=== PATIENT | male | born 1945 | race Caucasian/White ===

== ENCOUNTER 2018-09-15 10:55 | Day surgery (SDC) | payer OTHER ==
[2018-09-15] MEDS ORDERED: PHENYLEPHRINE 2.5% OPTH 2 ML ONE (11:13)
[2018-09-15] MEDS ORDERED: CYCLOPENTOLATE 1% OPTH 2 ML OPTH ONE ×3 (11:13→11:36)
[2018-09-15] MEDS ORDERED: PHENYLEPHRINE 10% OPTH 5ML ONE (11:14)
[2018-09-15] MEDS ORDERED: NA CHLORIDE 0.9% 500 ML ONE (11:14)
[2018-09-15] MEDS ORDERED: PHENYLEPHRINE 10% OPTH 5ML OPTH ONE ×2 (11:20→11:36)
[2018-09-15] MEDS ORDERED: BALANCED SALT IRRIG PLAIN 500 ML BTL IRR ONE (11:37)
[2018-09-15] MEDS ORDERED: NS 0.9% VIAL 10 ML ONE (11:37)
[2018-09-15] MEDS ORDERED: EPINEPHRINE/PF 1 MG/ML AMP ONE (11:37)
[2018-09-15] MEDS ORDERED: DUOVISC 1 KIT OPTH ONE (11:37)
[2018-09-15] MEDS ORDERED: MOXIFLOXACIN HCL 10 DROPS/ML **OR USE OPTH ONE (11:38)
[2018-09-15] MEDS ORDERED: PROPOFOL 200 MG/20 ML VIAL IV ONE (11:47)
[2018-09-15] MEDS: LIDOCAINE 1% MPF 5 ML VIAL ONE ×2 (11:49→12:15)
--- NOTE | 2018-09-15 13:01 | P.BOP ---
Preoperative diagnosis: Nuclear sclerotic cataract and regular astigmatism OS Postoperative diagnosis: Same Primary procedure: Phacoemulsification with IOL OS, Limbal relaxing incision OS Estimated blood loss: None Anesthesia: Local (Subtenon's infusion with anesthesia for cataract surgery) Complications: None Implants: [id number] +22.0 Transferred to: Other (Day surgery) Condition: Good
--- NOTE | 2018-09-15 23:39 | OP ---
Date of Procedure: 09/15/2018 Surgeon: Arleen Pickett MD Anesthesiologist: Liz Maxwell CRNA and Carlos Chang M.D. Preoperative Diagnosis: Nuclear sclerotic cataract and regular astigmatism, left eye. Operation Performed: Phacoemulsification with intraocular lens implant, left eye. Anesthesia: Per Cataract Surgery. Complications: None. Description Of Procedure: In day surgery, the patient was prepped with Betadine and draped. A conju nctival incision was made in the inferior nasal quadrant with Swathi scissors. A sub-Tenon block c onsisting of a 1:1 mixture of 2% Xylocaine and 0.25% bupivacaine was placed through the conjunctival incision with a blunt cannula. A Honan balloon was placed over the eye and the patient was transferr ed to the operating room. In the operating room the patient was prepped and draped in the usual sterile fashion for ophthalmic surgery. A lid speculum was placed in the left eye. Two paracentesis sites were made superiorly and inferiorly in the limbal cornea. Viscoat was placed in the anterior chamber and a crescent blade wa s used to make a corneal groove and tunnel, and a keratome was used to enter the anterior chamber. P rovisc was placed in the anterior chamber and a 360 degree capsulotomy was performed with a cystitome . The lens was hydrodissected with BSS and rotated freely. The lens was removed with a stop and cho p technique. A 20.34 phaco CDE was used to remove the lens. Residual cortex was removed with the ir rigation and aspiration. Provisc was placed in the capsular bag. A ZCB00 +22.0 lens was placed in t he capsular bag without complications. Irrigation and aspiration was used to remove residual viscoel astic. The paracentesis sites were hydrated with BSS. The wound and paracentesis sites were inspect ed and found to be watertight. Vigamox 0.07 cc was placed intracamerally at the end of the procedure . The eye was irrigated with balanced salt solution. The eye was patched with a soft cotton patch a nd Hodges metal shield. The patient was returned to day surgery in good condition. Comments: A limbal relaxing incision was created at a 150 degrees in the temporal quadrant, a 40-deg ree arc was created with a 550 micron blade. Discharge Instructions: Mr. Jackson is discharged to home in good condition and is to follow up with Dr. Pickett. INDY/ZACHARY Voice ID: [id number] Report ID: [id number]
== END 2018-09-15 13:30 | disposition home or self-care (01) ==
LOC: OR 10:55
PROVIDERS: ATTEND Ophthalmology Retina Specialist
PROC: 08RK3JZ Replacement of Left Lens with Synthetic Substitute, Percutaneous Approach (ICD-10-PCS; principal; 2018-09-15 11:15)
DX: H25.12 Age-related nuclear cataract, left eye (principal); H52.222 Regular astigmatism, left eye; K21.9 Gastro-esophageal reflux disease without esophagitis; E78.00 Pure hypercholesterolemia, unspecified; Z86.73 Personal history of transient ischemic attack (TIA), and cerebral infarction without residual deficits
CPT/HCPCS: 66984; J0171; J2704

== ENCOUNTER 2018-10-27 06:53 | Day surgery (SDC) | payer OTHER ==
[2018-10-27] MEDS ORDERED: CYCLOPENTOLATE 1% OPTH 2 ML ONE (07:20)
[2018-10-27] MEDS ORDERED: LIDOCAINE 2% MPF 5 ML VIAL ONE ×2 (07:20→08:13)
[2018-10-27] MEDS ORDERED: LIDOCAINE 1% MPF 30 ML VIAL ONE (07:21)
[2018-10-27] MEDS ORDERED: PHENYLEPHRINE 10% OPTH 5ML ONE (07:21)
[2018-10-27] MEDS ORDERED: TETRACAINE HCL 0.5% 2ML OPTH ONE (07:21)
[2018-10-27] MEDS ORDERED: NACHLORIDE 0.45% 500 ML IV ONE (07:22)
[2018-10-27] MEDS ORDERED: PHENYLEPHRINE 10% OPTH 5ML OPTH ONE ×2 (07:30→07:35)
[2018-10-27] MEDS ORDERED: CYCLOPENTOLATE 1% OPTH 2 ML OPTH ONE ×2 (07:30→07:35)
[2018-10-27] MEDS ORDERED: NS 0.9% VIAL 10 ML ONE (08:06)
[2018-10-27] MEDS ORDERED: EPINEPHRINE/PF 1 MG/ML AMP ONE (08:07)
[2018-10-27] MEDS ORDERED: BUPIVACAINE 0.25% PF 30 ML VIAL ONE (08:08)
[2018-10-27] MEDS ORDERED: BALANCED SALT IRRIG PLAIN 500 ML BTL IRR ONE (08:08)
[2018-10-27] MEDS ORDERED: DUOVISC 1 KIT OPTH ONE (08:09)
[2018-10-27] MEDS ORDERED: MOXIFLOXACIN HCL 10 DROPS/ML **OR USE OPTH ONE (08:10)
[2018-10-27] MEDS ORDERED: PROPOFOL 200 MG/20 ML VIAL IV ONE (08:13)
[2018-10-27] MEDS ORDERED: NA CHLORIDE 0.9% 500 ML ONE (08:30)
--- NOTE | 2018-10-27 09:10 | P.BOP ---
Preoperative diagnosis: Nuclear sclerotic cataract and regular astigmatism OD Postoperative diagnosis: Same Primary procedure: Phacoemulsification with IOL OD with limbal relaxing incision Estimated blood loss: None Anesthesia: Local (Subtenon's infusion with anesthesia for cataract surgery) Complications: None Implants: ZCB00 +21.5 Transferred to: Other (Day surgery) Condition: Good
--- NOTE | 2018-10-27 20:45 | OP ---
Date of Procedure: 10/27/2018 Surgeon: Arleen Pickett MD Anesthesiologist: Maulik Euceda CRNA and Gigi Yin MD Preoperative Diagnosis: Nuclear sclerotic cataract and regular astigmatism, right eye. Operation Performed: Phacoemulsification with intraocular lens implant, right eye with limbal relaxing incision, right eye. Anesthesia: Per cataract surgery. Complications: None. Description Of Procedure: In day surgery, the patient was prepped with Betadine and draped. A conjunctival incision was made in the inferior nasal quadrant with Swathi scissors. A sub-Tenon block consisting of a 1:1 mixture of 2% Xylocaine and 0.25% bupivacaine was placed through the conjunctival incision with a blunt cannula. A Honan balloon was placed over the eye and the patient was transferred to the operating room. In the operating room the patient was prepped and draped in the usual sterile fashion for ophthalmic surgery. A lid speculum was placed in the right eye. Two paracentesis sites were made superiorly and inferiorly in the limbal cornea. Viscoat was placed in the anterior chamber and a crescent blade was used to make a corneal groove and tunnel, and a keratome was used to enter the anterior chamber. Provisc was placed in the anterior chamber and a 360 degree capsulotomy was performed with a cystitome. The lens was hydrodissected with BSS and rotated freely. The lens was removed with a stop and chop technique. 30.05 phaco CDE was used to remove the lens. Residual cortex was removed with the irrigation and aspiration. Provisc was placed in the capsular bag. A ZCB00 +21.5 lens was placed in the capsular bag without complications. Irrigation and aspiration were used to remove residual viscoelastic. The paracentesis sites were hydrated with BSS. The wound and paracentesis sites were inspected and found to be watertight. Vigamox 0.07 cc was placed intracamerally at the end of the procedure. The eye was irrigated with balanced salt solution. The eye was patched with a soft cotton patch and Hodges metal shield. The patient was returned to day surgery in good condition. Comments: A limbal relaxing incision was created at 6 degrees nasally. A 40 degree arc was created with the 550 micron blade. Extra Viscoat was used. Discharge Instructions: Mr. Jackson is discharged to home in good condition and is to follow up with Dr. Pickett in the morning. INDY/ZACHARY Voice ID: [id number] Report ID: [id number] ANNE
== END 2018-10-27 09:40 | disposition home or self-care (01) ==
LOC: PRE 06:53
PROVIDERS: ATTEND Ophthalmology Retina Specialist
PROC: 08Q8XZZ Repair Right Cornea, External Approach (ICD-10-PCS; 2018-10-27)
PROC: 08RJ3JZ Replacement of Right Lens with Synthetic Substitute, Percutaneous Approach (ICD-10-PCS; principal; 2018-10-27 08:30)
DX: H25.11 Age-related nuclear cataract, right eye (principal); H52.221 Regular astigmatism, right eye; K21.9 Gastro-esophageal reflux disease without esophagitis; E78.00 Pure hypercholesterolemia, unspecified; Z86.73 Personal history of transient ischemic attack (TIA), and cerebral infarction without residual deficits
CPT/HCPCS: 66984; 66999; J0171; J2704

== ENCOUNTER 2022-08-04 23:11 | Emergency (ER) | payer OTHER ==
--- OUTSIDE RECORDS SUMMARY | 2022-08-04 23:15 | XMS REPORT | Continuity of Care Document ---
:1945 Author Organization [facility] t Address [address] [place] [address] Dr. Harrington. [address] [place] [address] Care Team Providers Name Role Phone Krys Herman MD, Calvin Primary Care Physician Jairo Attending Clinician Unavailable Rosalio Solis Attending Clinician [phone] CHUCK ARRIAGA Attending Clinician Unavailable ASHLYN ENCINAS Attending Clinician Unavailable KEVON ROSE Attending Clinician Unavailable Chuck Arriaga MD Attending Clinician Tika Patrick MD Attending Clinician Jairo Admitting Clinician Unavailable Payers Payer Name Policy Type Policy Number Effective Date Expiration Date S [facility] [id number] 2021 (MEDICARE 00:00:00 REPLACEMENT/ADVANTA GE - PPO) [facility]-CARE MEDICARE [id number] [facility] ZZZTRS-CARE [id number] MEDICARE ADVANTAGE MEDICARE PLAN PPO - [id number] [employer] MEDICARE PART B - [id number] MEDICARE Problems Condition Condition Condition Status Onset Resolution Last Treating Co mments Source Name Details Category Date Date Treatment Clinician Date BCC (basal BCC (basal 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 Social History Social Habit Start Date Stop Date Quantity Comments Source Exposure to Not sure [facility] Jed huber SARS-CoV-2 of Medicine (event) Alcohol intake 2022-01-17 2022-01-17 Current drinker [facility] 00:00:00 00:00:00 of alcohol of Medicine (finding) Tobacco use and 2013-06-26 2013-06-26 Smokeless tobacco [facility] exposure 00:00:00 00:00:00 non-user of Medicine Sex [birth year] [facility] [employer] 00:00:00 00:00:00 of Medicine Smoking Status Start Date Stop Date Source Never smoked tobacco [facility] of [facility] Medications Ordered Filled Start Stop Current Ordering Indication Dosage Frequency Signature Comments Components Source Medication Medication Date Date Medication? Clinician (SIG) Name Name Multiple 2020-11 Yes Take by [facility] Vitamins-Mi 2-13 mouth. Colleg e nerals 17:24: of (SENT 48 Medicin ADULT) TABS e Cyanocobala 2020-11 Yes Take by [place] [facility] min 2-13 mouth. 4x College (VITAMIN 17:24: week of B-12) 5000 48 Medicin MCG TBDP e Coenzyme 2020-11 Yes Take by [facility] Q10 (COQ10) 2-13 mouth [facility]less 100 MG CAPS 17:24: daily. of 48 Medicin e Glucosamine 2020-11 Yes Take by [place] [facility] 750 MG TABS 2-13 mouth College 17:24: daily. of 48 Medicin e Multiple 2020-11 Yes Take by [facility] Vitamins-Mi 2-13 mouth. Colleg e nerals 17:24: of (SENTRY 48 Medicin ADULT) TABS e Cyanocobala 2020-11 Yes Take by [place] [facility] min 2-13 mouth. 4x College (VITAMIN 17:24: week of B-12) 5000 48 Medicin MCG TBDP e Coenzyme 2020-11 Yes Take by [facility] Q10 (COQ10) 2-13 mouth [facility]less 100 MG CAPS 17:24: daily. of 48 Medicin e Glucosamine 2020-11 Yes Take by [facility] 750 MG TABS 2-13 mouth [facility] 17:24: daily. of 48 Medicin e Multiple 2020-11 Yes Take by [facility] Vitamins-Mi 2-13 mouth. Colleg e nerals 17:22: of (VITEYES 01 Medicin AREDS e ADVANCED OR) tadalafil 2020-11 Yes 20mg Take 20 mg Ba ylor (CIALIS) 20 2-13 by mouth [facility] MG tablet 17:22: as needed of 01 for Medicin Erectile e Dysfunctio n. Multiple 2020-11 Yes Take by [facility] Vitamins-Mi 2-13 mouth. Colleg e nerals 17:22: of (VITEYES 01 Medicin AREDS e ADVANCED OR) tadalafil 2020-11 Yes 20mg Take 20 mg [facility] (CIALIS) 20 2-13 by mouth [facility] MG tablet 17:22: as needed of 01 for Medicin Erectile e Dysfunctio n. Cyanocobala 2020-11- No 1000ug Take 1,000 Jl min 2-13 12-13 mcg by [facility] (VITAMIN 15:50: 00:00 mouth. of B-12) 1000 49 :00 Medicin MCG TABS e Cholecalcif 2020-11- No 1000U Take 1,000 Jl dhara 2-13 12-13 Units by [facility] (VITAMIN 15:50: 00:00 mouth. of D-1000 MAX 46 :[address]) 25 MCG e (1000 UT) TABS atorvastati 2020-11 Yes [facility] n (LIPITOR) 2-08 [facility]less 20 MG 00:00: of tablet 00 Medicin e clopidogrel 2020-11 Yes [facility] (PLAVIX) 75 2-08 [facility] MG Tablet 00:00: of 00 Medicin e atorvastati 2020-11 Yes [facility] n (LIPITOR) 2-08 [facility] 20 MG 00:00: of tablet 00 Medicin e clopidogrel 2020-11 Yes [facility] (PLAVIX) 75 2-08 [facility] MG Tablet 00:00: of 00 Medicin e Cyanocobala 0 Yes 1000ug Take 1,000 [facility] min 3-11 mcg by College (VITAMIN 14:42: mouth. of B-12) 1000 44 Medicin MCG TABS e Cholecalcif 2020-0 Yes 1000U Take 1,000 [facility] dhara 3-11 Units by College (VITAMIN 14:42: mouth. of D-[address]) 25 MCG e (1000 UT) TABS Multiple 2020-0 Yes Take by [facility] Vitamins-Mi 3-11 mouth. Colleg e nerals 14:42: of (VITEYES 44 Medicin AREDS e ADVANCED OR) Cyanocobala 2020-0 Yes 1000ug Take 1,000 Jl min 3-11 mcg by College (VITAMIN 09:42: mouth. of B-12) 1000 44 Medicin MCG TABS e Cholecalcif 2020-0 Yes 1000U Take 1,000 Jl dhaar 3-11 Units by [facility] (VITAMIN 09:42: mouth. of D-[address]) 25 MCG e (1000 UT) TABS Multiple 2020-0 Yes Take by [facility] Vitamins-Mi 3-11 mouth. Colleg e nerals 09:42: of (VITEYES 44 Medicin AREDS e ADVANCED OR) rosuvastati 2020-0 Yes [facility] n (CRESTOR) 3- [facility] 10 MG 00:00: of tablet 00 Medicin e rosuvastati 2020-0 Yes [facility] n (CRESTOR) 3 [facility]less 10 MG 00:00: of tablet 00 Medicin e rosuvastati 2020-0 2020- No [facility] r n (CRESTOR) 01-17- [facility] 10 MG 00:00: 00:00 of tablet 00 :00 Medicin e ezetimibe 2020-0 Yes Jl (ZETIA) 10 - College MG tablet 00:00: of 00 Medicin e ezetimibe 2020-0 Yes Jl (ZETIA) 10 - College MG tablet 00:00: of 00 Medicin e ezetimibe 2020-0 2020- No Jl (ZETIA) 10 11-14 College MG tablet 00:00: 00:00 of 00 :00 Medicin e ranitidine, Yes TAKE 1 [facility] ZANTAC, 150 7-31 TABLET BY Col lege MG tablet 00:00: MOUTH of 00 TWICE A Medicin DAY e ranitidine, Yes TAKE 1 [facility] ZANTAC, 150 7-31 TABLET BY Col lege MG tablet 00:00: MOUTH of 00 TWICE A Medicin DAY e ranitidine, 2020- No TAKE 1 [place] [facility] ZANTAC, 150 7-31 12-13 TABLET BY Co llege MG tablet 00:00: 00:00 MOUTH of 00 :00 TWICE A Medicin DAY e Immunizations Ordered Immunization Filled Immunization Date Status Commen ts Source Name Name Influenza Hd 2021-08-11 Completed [facility] ge 00:00:00 of Medicine Vital Signs Vital Name Observation Time Observation Value Comments Source Systolic blood 2020-01-20 14:41:00 138 mm[Hg] [facility] pressure Medicine Diastolic blood 2020-01-20 14:41:00 86 mm[Hg] [facility] Medicine Heart rate 2020-01-20 14:41:00 70 /min [facility] of Medicine Body height 2020-01-20 14:41:00 180.3 cm [facility] of Medicine Body weight 2020-01-20 14:41:00 80.287 kg [facility] of Medicine BMI 2020-01-20 14:41:00 24.69 kg/m2 [facility] of Medicine Systolic blood 2020-01-20 14:41:00 138 mm[Hg] [facility] Medicine Diastolic blood 2020-01-20 14:41:00 86 mm[Hg] [facility] Medicine Heart rate 2020-01-20 14:41:00 70 /min [facility] of Medicine Body height 2020-01-20 14:41:00 180.3 cm [facility] of Medicine Body weight 2020-01-20 14:41:00 80.287 kg [facility] of Medicine BMI 2020-01-20 14:41:00 24.69 kg/m2 [facility] of Medicine Procedures This patient has no known procedures. Plan of Care Planned Activity Planned Date Details Comments Source Future Scheduled 2022-01-17 TETANUS SHOT (ADULT) [facility] Test 16:12:39 [code = TETANUS SHOT of Medi cine (ADULT)] Future Scheduled 2022-01-17 Hepatitis C [facility] Test 16:12:39 screening of Medicine (procedure) [code = 078261359] Future Scheduled 2022-01-17 ZOSTER VACCINE (1 of [place] [employer] Test 16:12:39 2) [code = ZOSTER of Medicin e VACCINE (1 of 2)] Future Scheduled 2022-01-17 FALL SCREEN [code = [facility] [employer] Test 16:12:39 FALL SCREEN] of Medicine Future Scheduled 2022-01-17 Pneumococcal 65+ (1 [facility] [facility] [employer] Test 16:12:39 of 1 - PPSV23) [code of Medi cine = Pneumococcal 65+ (1 of 1 - PPSV23)] Future Scheduled 2022-01-17 MEDICARE AWV J[facility] Test 16:12:39 (Initial) [code = of Medicin e MEDICARE AWV (Initial)] Future Scheduled 2022-01-17 Screening for Jl [employer] Test 16:12:39 malignant neoplasm of Medici ne of colon (procedure) [code = 864501439] Future Scheduled 2022-01-17 COVID-19 Vaccine (1) [place] [facility] [employer] Test 16:12:39 [code = COVID-19 of Medicine Vaccine (1)] Future Scheduled 2022-01-17 MD DESTRUC Ordered: [facility] Test 16:12:36 PREMALIGNANT, FIRST 01/17/2022 of Medic ine LESION(65757) [code = 56692] Future Scheduled 2022-01-17 MD DESTRUC Ordered: [facility] Test 16:12:36 PREMALIGNANT,2-14 01/17/2022 of Medicin e LESIONS(29568) [code = 00681] Future Scheduled 2021-10-25 MD TANGENTIAL BIOPSY Ordered: [facility] Test 20:21:01 SKIN EA 10/25/2021 of Medicine SEP/ADDITIONAL LESION [code = 41928] Future Scheduled 2021-10-25 MD DESTRUC Ordered: [facility] Test 20:21:01 PREMALIGNANT, FIRST 10/25/2021 of Medic ine LESION(63848) [code = 22490] Future Scheduled 2021-10-25 MD DESTRUC Ordered: [facility] Test 20:21:01 PREMALIGNANT,2-14 10/25/2021 of Medicin e LESIONS(87468) [code = 71302] Future Scheduled 2021-10-25 MD TANGENTIAL BIOPSY Ordered: [facility] Test 20:21:00 SKIN SINGLE LESION 10/25/2021 of Medici ne [code = 39743] Future Scheduled 2021-10-25 Screening for [facility] Test 20:19:22 malignant neoplasm of Medici ne of colon (procedure) [code = 974708277] Future Scheduled 2021-10-25 COVID-19 Vaccine (1) [place] [facility] [employer] Test 20:19:22 [code = COVID-19 of Medicine Vaccine (1)] Future Scheduled 2021-10-25 TETANUS SHOT (ADULT) [place] [facility] [employer] Test 20:19:22 [code = TETANUS SHOT of Medi cine (ADULT)] Future Scheduled 2021-10-25 Hepatitis C [facility] Test 20:19:22 screening of Medicine (procedure) [code = 496428104] Future Scheduled 2021-10-25 ZOSTER VACCINE (1 of [facility] Test 20:19:22 2) [code = ZOSTER of Medicin e VACCINE (1 of 2)] Future Scheduled 2021-10-25 FALL SCREEN [code = [facility] [facility] [employer] Test 20:19:22 FALL SCREEN] of Medicine Future Scheduled 2021-10-25 Pneumococcal 65+ (1 [facility] [facility] [employer] Test 20:19:22 of 1 - PPSV23) [code of Medi cine = Pneumococcal 65+ (1 of 1 - PPSV23)] Future Scheduled 2021-10-25 MEDICARE AWV [facility] Test 20:19:22 (Initial) [code = of Medicin e MEDICARE AWV (Initial)] Future Scheduled 2021-10-25 FLU VACCINE > 6 [facility] Test 20:19:22 MONTHS [code = FLU of Medici ne VACCINE > 6 MONTHS] Future Scheduled 2021-05-03 MD TANGENTIAL BIOPSY Ordered: [facility] Test 11:21:25 SKIN SINGLE LESION 05/03/2021 of Medici ne [code = 73774] Future Scheduled 2021-05-03 MD DESTRUC Ordered: [facility] Test 11:21:25 PREMALIGNANT,15+ 05/03/2021 of Medicine LESIONS(49048) [code = 25290] Future Scheduled 2021-05-03 Screening for [facility] Test 10:04:40 malignant neoplasm of Medici ne of colon (procedure) [code = 203368131] Future Scheduled 2021-05-03 COVID-19 Vaccine (1) [facility] Test 10:04:40 [code = COVID-19 of Medicine Vaccine (1)] Future Scheduled 2021-05-03 TETANUS SHOT (ADULT) [place] [facility] [employer] Test 10:04:40 [code = TETANUS SHOT of Medi cine (ADULT)] Future Scheduled 2021-05-03 Hepatitis C [facility] Test 10:04:40 screening of Medicine (procedure) [code = 792682838] Future Scheduled 2021-05-03 ZOSTER VACCINE (1 of [facility] Test 10:04:40 2) [code = ZOSTER of Medicin e VACCINE (1 of 2)] Future Scheduled 2021-05-03 FALL SCREEN [code = [facility] [employer] Test 10:04:40 FALL SCREEN] of Medicine Future Scheduled 2021-05-03 PNEUMOVAX >=65 [facility] Test 10:04:40 (PPSV23) [code = of Medicine PNEUMOVAX >=65 (PPSV23)] Future Scheduled 2021-05-03 FLU VACCINE > 6 [facility] Test 10:04:40 MONTHS [code = FLU of Medici ne VACCINE > 6 MONTHS] Future Scheduled MD DESTRUC Ordered: [facility] Test PREMALIGNANT, FIRST 01/20/2020 of Medic ine LESION(35270) [code = 61228] Future Scheduled MD DESTRUC Ordered: [facility] Test PREMALIGNANT,2-14 01/20/2020 of Medicin e LESIONS(51340) [code = 40451] Future Scheduled COLON CANCER [facility] Test SCREENING: of Medicine COLONOSCOPY [code = COLON CANCER SCREENING: COLONOSCOPY] Future Scheduled TETANUS SHOT (ADULT) [facility] Test [code = TETANUS SHOT of Medi cine (ADULT)] Future Scheduled BMI FOLLOW UP PLAN [facility] Test [code = BMI FOLLOW of Medici ne UP PLAN] Future Scheduled HEPATITIS C [facility] Test SCREENING [code = of Medicin e HEPATITIS C SCREENING] Future Scheduled FALL SCREEN [code = [facility] [employer] Test FALL SCREEN] of Medicine Future Scheduled PNEUMOVAX >=65 [facility] Test (PPSV23) [code = of Medicine PNEUMOVAX >=65 (PPSV23)] Future Scheduled PREVNAR >= 65 [facility] Test (PCV13) [code = of Medicine PREVNAR >= 65 (PCV13)] Future Scheduled MEDICARE AWV [facility] Test (Initial) [code = of Medicin e MEDICARE AWV (Initial)] Future Scheduled FLU VACCINE > 6 [facility] Test MONTHS [code = FLU of Medici ne VACCINE > 6 MONTHS] Encounters Start End Encounter Admission Attending Care Care Encounter Source Date/Time Date/Time Type Type Clinicians Facility Department ID 2022-06-04 2022-06-04 Outpatient FOG_Edwards AOSM AOSM [id number] [facility] 01:57:00 01:57:00 _Niurka [id number] Orth [facility] Medicin e 2022-06-04 2022-06-04 Outpatient CASSIE Solis AOSM [id number] 00:00:00 00:00:00 Rosalio Cardenas [id number] 2022-05-11 2022-05-11 Outpatient DAVID_John AOSM AOSM [id number] [facility] 03:28:00 03:28:00 _Niurka [id number] Orth ope dic Sports Medicin e 2022-05-11 2022-05-11 Outpatient CASSIE Solis AOSM [id number] 00:00:00 00:00:00 Rosalio Cardenas [id number] 2022-04-17 2022-04-17 Outpatient DAVID_John AOSM AOSM [id number] [facility] 10:28:00 10:28:00 _Niurka [id number] Orth ope dic Sports Medicin e 2022-01-17 2022-01-17 Office ERIC ARRIAGA [id number] [facility] 08:55:21 09:51:05 Visit CHUCK AMBULATOR [id number] College Y 0.2.7.2.686 of [id number] Medi nima 300 e 2021-12-05 2021-12-05 Outpatient ASHLYN ENCINAS [facility] [id number] [facility] 08:43:28 11:57:40 Colleg e of Medicin e 2021-11-21 2021-11-21 Outpatient MILTON, [facility] [id number] [facility] 00:00:00 00:00:00 KEVON [address] 2021-11-17 2021-11-17 Outpatient MILTON, [facility] [id number] [facility] 00:00:00 00:00:00 KEVON [address] 2021-10-23 2021-10-23 Office Juan Francisco BC [id number] [facility] 15:45:00 16:06:27 Visit Chuck A AMBULATOR 350.1.13.21 College Y 0.2.7.2.686 of [id number] Medi nima 300 e 2021-08-01 2021-08-01 Outpatient HUANGASHLYN [facility] BCM [id number] [facility] 08:38:08 10:29:54 Colleg e of Medicin e 2021-06-28 2021-06-28 Outpatient HUANGASHLYN [facility] [id number] [facility] 11:04:43 12:10:02 Colleg e of Medicin e 2021-05-03 2021-05-03 Office Tika Patrick M [id number] [facility] 09:39:57 09:54:57 Visit Silverio AMBULATOR 350.1.13.21 College Y 0.2.7.2.686 of [id number] Medi nima 300 e 2020-11-22 2020-11-22 Outpatient ROSEFORMERLY [facility] [id number] [place] 00:00:00 00:00:00 KEVON 747 Method i 2020-11-07 2020-11-07 Outpatient ROSEFORMERLY [facility] [id number] [facility] 00:00:00 00:00:00 KEVON 714 Method i 2020-05-17 2020-05-17 Outpatient ROSEFORMERLY [facility] [id number] [place]inger 00:00:00 00:00:00 KEVON 680 Method i 2020-01-20 2020-01-20 Office Tika Patrick BCM [id number] 09:03:55 09:18:55 Visit [facility] AMBULATOR 350.1.13.21 Y 0.2.7.2.686 [id number] 300 2020-01-20 2020-01-20 Office Tika Patrick [facility] [id number] [facility] 09:03:55 09:18:55 Visit [facility] AMBULATOR 350.1.13.21 College Y 0.2.7.2.686 of [id number] [facility] nima 300 e Results This patient has no known results.
[2022-08-05 00:02] LABS: Absolute Lymphocytes (CBC) 3.7 K/uL (0.7-4.9); Hematocrit 46.5 % (39.6-49.0); Lymphocytes % 48.8 % (15.3-44.8); MCV 89.7 fL (80-100); MPV 8.3 fL (7.6-11.3); RBC Red Blood Cell Count 5.18 M/uL (4.33-5.43)
[2022-08-05 00:03] LABS: Protime INR 0.98
[2022-08-05 00:20] LABS: Albumin 3.5 g/dL (3.4-5.0); Bilirubin Direct 0.1 mg/dL (0-0.2); Bilirubin Total 1.2 mg/dL (0.2-1.0); Potassium 3.6 mmol/L (3.5-5.1); Protein, Total 6.8 g/dL (6.4-8.2); Troponin High Sensitivity 8.9 pg/mL (<58.9)
[2022-08-05 00:20] LABS: SARS-CoV-2 Antigen Rapid Res Negative (Negative)
[2022-08-05 00:21] LABS: Magnesium 2.2 mg/dL (1.8-2.4)
[2022-08-05 00:25] LABS: Blood Morphology Comment NOTED (NOT SEEN); Platelet Estimate ADEQ; Teardrop Cell 1+; White Blood Cell Scan OK (OK)
[2022-08-05] MEDS ORDERED: Nicardipine/NS 25 MG/250 ML KIT IV ONE (00:32)
--- NOTE | 2022-08-05 00:44 | ER ---
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 I took a Cialis at 9 PM today. Initial Sepsis Screen: Does the patient meet any 2 criteria? No. Patient's initial sepsis screen is negative. Does the patient have a suspected source of infection? No. Patient's initial sepsis screen is negative. Risk Assessment: Do you want to hurt yourself or someone else? Patient reports no desire to harm self or others. Onset of symptoms was August 04, 2022 at 23:50. 23:48 Method Of Arrival: Wheelchair aa9 23:48 Acuity: MANJIT 2 aa9 08/05 00:04 Coronavirus screen: Vaccine status: Patient reports receiving the 2nd dose of the covid aa9 vaccine. Ebola Screen: No symptoms or risks identified at this time. Historical: - Allergies: 00:07 No Known Allergies; aa9 - Home Meds: 00:07 atorvastatin 20 mg oral tab 1 tab once daily [Active]; famotidine 20 mg Oral tab 1 tab aa9 once daily [Active]; Sentry oral tab daily [Active]; CoQ-10 100 mg oral cap daily [Active]; [place]-3 350 mg-235 mg- 90 mg-597 mg oral cpDR daily [Active]; aspirin 81 mg Oral cap 1 cap once daily [Active]; tadalafil 20 mg oral tab 1 tab for erectile dysfunction [Active]; - PMHx: 00:07 aortic aneurysm; TIA; Hypercholesterolemia; aa9 - PSHx: 00:07 shoulder sx; aa9 - Immunization history:: Client reports receiving the 2nd dose of the Covid vaccine. - Social history:: Smoking status: Patient denies any tobacco usage or history of. Screenin:14 Abuse screen: Denies threats or abuse. Denies injuries from another. Nutritional aa9 screening: No deficits noted. Tuberculosis screening: No symptoms or risk factors identified. Fall Risk None identified. Assessment: 08/04 23:44 General: Appears distressed, uncomfortable, Behavior is agitated, anxious. Pain: aa9 Complains of pain in buttocks Pain does not radiate. Pain began 30 min ago. Neuro: Level of Consciousness is awake, alert, obeys commands, Oriented to person, place, time, situation. Cardiovascular:. Respiratory: Airway is patent Respiratory effort is even, unlabored, Respiratory pattern is regular, symmetrical. Derm: Derm: Skin is dusky, Skin temperature is cool. Derm: Skin is clammy. Musculoskeletal: Reports numbness in right leg. 23:44 Cardiovascular: Pulses are absent in right posterior tibial artery and right dorsalis aa9 pedis artery. 08/05 00:27 General: Behavior is restless. as6 Vital Signs: 08/04 23:15 BP 137 / 50; Pulse 48; Resp 17 S; Pulse Ox 100% on R/A; as6 23:48 BP 132 / 50; Pulse 49; Resp 16 S; Temp 97.5(O); Pulse Ox 98% on R/A; aa9 08/05 00:00 Weight 86.18 kg (R); as6 00:00 BP 127 / 55; Pulse 48; Resp 20 S; Pulse Ox 100% on R/A; aa9 00:28 BP 133 / 46; Pulse 51; Resp 20 S; Pulse Ox 99% on R/A; as6 00:37 BP 128 / 55; Pulse 54; Resp 18 S; Pulse Ox 100% on R/A; as6 00:41 BP 106 / 34; Pulse 56; Resp 19 S; Pulse Ox 100% on R/A; as6 ED Course: 08/04 23:15 Patient arrived in ED. ja2 23:15 Zachary Cabrera, PEMA is Primary Nurse. as6 23:16 Josy hSah MD is Attending Physician. sd2 23:47 Ct Stroke Brain Wo Cont In Process Unspecified. EDMS 23:48 Angio Aorta For Dissection In Process Unspecified. EDMS 23:48 Inserted saline lock: 20 gauge in left antecubital area, using aseptic technique. Blood aa9 collected. 23:50 Triage completed. aa9 23:51 Stroke CXR 1 View In Process Unspecified. EDMS 08/05 00:01 Initiated transfer to [facility] per Pt request, spoke with Cami Noble. wm 00:02 Inserted saline lock: 18 gauge in right forearm, using aseptic technique. aa9 00:12 Arm band placed on. aa9 00:14 Patient maintains SpO2 saturation greater than 95% on room air. aa9 00:14 Patient has correct armband on for positive identification. Bed in low position. Side aa9 rails up X2. Client placed on continuous cardiac and pulse oximetry monitoring. NIBP monitoring applied. 00:27 Pt accepted for transfer to [facility] by Dr. Cintia Hickman per Cami Noble. wm 00:40 No provider procedures requiring assistance completed. aa9 01:10 Patient transferred, IV remains in place. as6 Administered Medications: 00:21 Not Given (Other Intervention Used): Esmolol 50 mcg/kg/min IV at bolus See aa9 Administration Instructions; (Standard concentration 2500 mg / 250 mL D5W); Recommended max rate 200 mcg/kg/min; Titrate 25 mcg/kg/min as often as every 5 minutes to achieve goal (see titration policy); Goal parameter HR less than 100 bpm. 00:32 Drug: niCARdipine 5 mg/hr Route: IV; Rate: calculated rate; Site: left antecubital; aa9 01:10 Follow up: Response: No adverse reaction; IV Status: Infusion continued upon transfer as6 Medication: 00:40 VIS not applicable for this client. aa9 Outcome: 00:44 ER care complete, transfer ordered by . sd2 01:09 Transferred by helicopter to [facility], Transfer form completed. X-rays as6 sent w/ patient. 01:09 critical 01:09 Instructed on the need for transfer. 01:11 Patient left the ED. as6 Signatures: Dispatcher [employer] EDMS Marilia Benton Christlele Ralph Ashby, RN RN as6 Josy Shah MD MD sd2 Melissa Tabor, PEMA RN aa9 Corrections: (The following items were deleted from the chart) 00:04 00:03 Inserted saline lock: 20 gauge in left antecubital area, using aseptic technique. aa9 Blood collected. aa9 00:44 08/04 23:48 Chief complaint: Patient states: My right leg is completely numb, my hip aa9 hurts, I have a history of dilated aorta. I took a Cialis at 9 PM today. aa9
--- NOTE | 2022-08-05 00:44 | EDPHYS ---
Physician Documentation [facility] Name: Ryan Jackson Jr Age: 77 yrs Sex: Male : 1945 Arrival Date: 08/04/2022 Time: 23:15 Bed 6 Private MD: MARTITA Physician Josy Shah HPI: 08/04 23:30 This 77 yrs old Male presents to ER via Unassigned with complaints of Numbness, Chest sd2 Pain, Abdominal Pain. 23:30 27-year-old male with a history of aortic aneurysm and TIA presents with chief sd2 complaint of right lower extremity numbness and weakness that started at approximately 10:30 PM tonight. He reports it has progressively worsened since it started and he can no longer feel anything in his right lower extremity and is unable to move it at all. He states he did feel "indigestion" prior to this starting in his chest and all over his body. He had some mild nonspecific abdominal pain that has since resolved. He reports he does have a history of aortic aneurysm that has been monitored and was last measured at 4.7 cm in November. He was taken off of his blood thinners at that time. States he has felt sweaty and not well since this began. He denies any nausea, vomiting or diarrhea.. Historical: - Allergies: 08/05 00:07 No Known Allergies; aa9 - Home Meds: 00:07 atorvastatin 20 mg oral tab 1 tab once daily [Active]; famotidine 20 mg Oral tab 1 tab aa9 once daily [Active]; Sentry oral tab daily [Active]; CoQ-10 100 mg oral cap daily [Active]; [place]-3 350 mg-235 mg- 90 mg-597 mg oral cpDR daily [Active]; aspirin 81 mg Oral cap 1 cap once daily [Active]; tadalafil 20 mg oral tab 1 tab for erectile dysfunction [Active]; - PMHx: 00:07 aortic aneurysm; TIA; Hypercholesterolemia; aa9 - PSHx: 00:07 shoulder sx; aa9 - Immunization history:: Client reports receiving the 2nd dose of the Covid vaccine. - Social history:: Smoking status: Patient denies any tobacco usage or history of. ROS: 08/04 23:30 Constitutional: Negative for fever, chills, and weight loss, Eyes: Negative for injury, sd2 pain, redness, and discharge. Cardiovascular: Positive for chest pain, Negative for edema, palpitations. Respiratory: Positive for Negative for cough, shortness of breath, wheezing. Abdomen/GI: Positive for abdominal pain, Indigestion, Negative for nausea, vomiting, and diarrhea. MS/extremity: Positive for paresthesias, Weakness, Negative for injury or acute deformity, pain. Skin: Positive for Negative for abrasions, cellulitis, hematoma, jaundice. Neuro: Positive for numbness, weakness, Negative for headache. Exam: 23:30 Constitutional: This is a well developed, well nourished patient who is awake, alert, sd2 and in no acute distress. Appears diaphoretic. Head/Face: Normocephalic, atraumatic. Eyes: EOMI, normal conjunctiva bilaterally Chest/axilla: Normal chest wall appearance and motion. Nontender with no deformity. Cardiovascular: Regular rate and rhythm with a normal S1 and S2. No gallops, murmurs, or rubs. 2+ distal pulses. Respiratory: Lungs have equal breath sounds bilaterally, clear to auscultation and percussion. No rales, rhonchi or wheezes noted. No increased work of breathing, no retractions or nasal flaring. Abdomen/GI: Soft, non-tender, with normal bowel sounds. No guarding or rebound. No evidence of tenderness throughout. No palpable mass. Skin: Warm, dry with normal turgor. Normal color with no rashes, no lesions, and no evidence of cellulitis. MS/ Extremity: No palpable or dopplerable pulse in the RLE with cyanosis noted of the toes of the RLE and delayed capillary refill. Leg and foot is still warm to the touch. Neuro: Awake and alert, GCS 15, oriented to person, place, time, and situation. Cranial nerves II-XII grossly intact. Motor strength 5/5 in all extremities aside from RLE which is noted to have flaccid paralysis. No sensation noted to RLE. Sensation otherwise intact. No drift of LLE or BUEs. Psych: Awake, alert, with orientation to person, place and time. Behavior, mood, and affect are within normal limits. 23:39 ECG was reviewed by the Attending Physician. Sinus bradycardia, rate 43, sinus sd2 arrhythmia present, no STEMI criteria Vital Signs: 23:15 BP 137 / 50; Pulse 48; Resp 17 S; Pulse Ox 100% on R/A; as6 23:48 BP 132 / 50; Pulse 49; Resp 16 S; Temp 97.5(O); Pulse Ox 98% on R/A; aa9 08/05 00:00 Weight 86.18 kg (R); as6 00:00 BP 127 / 55; Pulse 48; Resp 20 S; Pulse Ox 100% on R/A; aa9 00:28 BP 133 / 46; Pulse 51; Resp 20 S; Pulse Ox 99% on R/A; as6 00:37 BP 128 / 55; Pulse 54; Resp 18 S; Pulse Ox 100% on R/A; as6 00:41 BP 106 / 34; Pulse 56; Resp 19 S; Pulse Ox 100% on R/A; as6 MDM: 08/04 23:16 Patient medically screened. 2 23:30 Differential diagnosis: CVA, TIA, metabolic disorder, drug effects, Dehydration, sd2 electrolyte abnormality, UTI, PNA, anemia among others. Data reviewed: vital signs, nurses notes. 08/05 00:21 ED course: Discussed case with Dr. Do, CT Surgery, at [facility] who has sd2 accepted the patient for transfer at this time. COVID test pending. Pt now has improved feeling of his RLE and is able to move the leg again. Dr. Do recommended Cardene gtt due to patient's HR already being so low and wanting to avoid beta blockade with BP parameter of SBP<110. . 00:28 ED course: Spoke to CT Surgery at [facility] as this was patient's request because his sd2 surgeon, Dr. Jolley is located there. Pt accepted for transfer at this time. . 00:41 ED course: Report given to ICU DRY PAN CHARGER and MD at [facility] and acceptance received. . 00:44 Data reviewed: lab test result(s), EKG, radiologic studies. Counseling: I had a sd2 detailed discussion with the patient and/or guardian regarding: the historical points, exam findings, and any diagnostic results supporting the discharge/admit diagnosis, lab results, radiology results, the need to transfer to another facility, for higher level of care. 08/04 23:28 Order name: Basic Metabolic Panel sd2 08/04 23:28 Order name: CBC with Diff 08/04 23:28 Order name: Hepatic Function 08/04 23:28 Order name: Magnesium 08/04 23:28 Order name: Protime (+inr) 08/04 23:28 Order name: Ptt, Activated 08/04 23:28 Order name: Stroke CXR 1 View 08/04 23:28 Order name: Troponin High Sensitivity 08/04 23:34 Order name: Glucose, Ancillary Testing; Complete Time: 23:48 EDMS 08/04 23:57 Order name: SARS-COV-2 Antigen Rapid 08/05 00:17 Order name: CBC Smear Scan EDMS 08/04 23:28 Order name: EKG; Complete Time: 23:29 08/04 23:28 Order name: Accucheck; Complete Time: 23:31 08/04 23:28 Order name: Cardiac monitoring; Complete Time: 23:31 08/04 23:28 Order name: EKG - Nurse/Tech; Complete Time: 23:31 08/04 23:28 Order name: IV Saline Lock; Complete Time: 23:31 08/04 23:28 Order name: Labs collected and sent; Complete Time: 23:31 08/04 23:28 Order name: NPO; Complete Time: 23:31 08/04 23:28 Order name: O2 Per Protocol; Complete Time: 23:31 08/04 23:28 Order name: O2 Sat Monitoring; Complete Time: 23:31 08/04 23:28 Order name: CT Dissection w/wo Con sd2 08/04 23:38 Order name: Ct Stroke Brain Wo Cont EDMS 08/04 23:44 Order name: Angio Aorta For Dissection EDMS Administered Medications: 00:21 Not Given (Other Intervention Used): Esmolol 50 mcg/kg/min IV at bolus See aa9 Administration Instructions; (Standard concentration 2500 mg / 250 mL D5W); Recommended max rate 200 mcg/kg/min; Titrate 25 mcg/kg/min as often as every 5 minutes to achieve goal (see titration policy); Goal parameter HR less than 100 bpm. 00:32 Drug: niCARdipine 5 mg/hr Route: IV; Rate: calculated rate; Site: left antecubital; aa9 01:10 Follow up: Response: No adverse reaction; IV Status: Infusion continued upon transfer as6 Disposition: 00:44 Chart complete. sd2 Disposition Summary: 08/05/22 00:44 Transfer Ordered Transfer Location: [facility] sd2 Reason: Higher level of care sd2 Condition: Critical sd2 Problem: new sd2 Symptoms: have improved sd2 Accepting Physician: Dr. 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 Total time: 90 minutes Signatures: Dispatcher [employer] EDZachary Conklin RN RN as6 Josy Shah MD MD sd2 Melissa Tabor RN RN aa9 Corrections: (The following items were deleted from the chart) 00:29 00:21 ED course: Discussed case with Dr. Do, CT Surgery, at [facility] who has accepted the patient for transfer at this time. COVID test pending. Pt now has improved feeling of his RLE and is able to move the leg again. . sd2 01:11 00:44 Dr. Hickman sd2 as6
[2022-08-06 12:32] VITALS: TEMP 97.5
[2022-08-06 12:42] VITALS: O2SAT 100
[2022-08-06 12:45] VITALS: BP 106/34
--- NOTE | 2022-08-06 14:10 | EKG ---
Test Date: 2022-08-04 Test Time: 23:27:27 Machine Set Up Technician: MEASUREMENT RESULTS: Intervals: Rate: 43 DC: 158 QRSD: 100 QT: 454 QTc: 383 [place]: P: 38 DC: 158 QRS: 54 T: 57 INTERPRETIVE STATEMENTS: Marked sinus bradycardia with sinus arrhythmia Abnormal ECG No previous ECG available for comparison Electronically Signed On 08-06-22 14:08:36 CDT by Nahun Joe
--- NOTE | 2022-08-06 14:13 | RAD REPORT ---
EXAM DESCRIPTION: CT - Ct Stroke Brain Wo Cont - 08/04/2022 11:45 pm ADDENDUM #1 These findings were communicated to Dr. Josy Shah on 08/04/2022 11:58 PM. (DISASTER OR DAMAGE CONTROL SPECIALIST) Electronically signed by: Kermit Adame MD 08/05/2022 1:18 AM CDT End of Addendum EXAM DESCRIPTION: Ct Stroke Brain Wo Cont CLINICAL HISTORY: 77 years Male, RLE numbness/weakness TECHNIQUE: Helical CT axial images are obtained from the base of skull through the vertex without IV contrast. Multiplanar reconstruction. This exam was performed according to our departmental dose-opt imization program, which includes automated exposure control, adjustment of the mA and/or kV accordin g to patient size and/or use of iterative reconstruction technique. COMPARISON: MRI brain 01/24/2018 FINDINGS: BRAIN: No infarcts. No parenchymal hemorrhage, intra-axial mass, mass effect, or midline s hift. No abnormal extra-axial fluid collections. VENTRICLES: Ventricles are normal in size and configuration. No hydrocephalus. CALVARIUM: Bone windows show no skull fracture or calvarial lesions. PARANASAL SINUSES AND MASTOIDS: Visualized paranasal sinuses are clear. Mastoid air cells are clear . ASPECTS Score for acute stroke: 10. IMPRESSION: 1. No CT evident acute infarct or acute intracranial disease. 2. ASPECT score 10. Electronically signed by: Kermit Adame MD 08/05/2022 12:00 AM CDT Due to temporary technical issues with the PACS/Fluency reporting system, reports are being signed by the in house radiologists without review as a courtesy to insure prompt reporting. The interpreting radiologist is fully responsible for the content of the report.
--- NOTE | 2022-08-06 14:17 | RAD REPORT ---
EXAM DESCRIPTION: CT - Angio Aorta For Dissection - 08/04/2022 11:46 pm CLINICAL HISTORY: The patient is 77 years old and is Male; Hx or aortic aneurysm with RLE numbness/f laccid paralysis [facility] MAIN TECHNIQUE: Axial computed tomographic angiography images of the chest, abdomen and pelvis with intra venous contrast. Sagittal and coronal reformatted images were created and reviewed. This CT exam was performed using one or more of the following dose reduction techniques: automated exposure cont rol, adjustment of the mA and/or kV according to patient size, and/or use of iterative reconstruction technique. MIP reconstructed images were created and reviewed. COMPARISON: 05/04/2019 CT chest with contrast FINDINGS: VASCULATURE: AORTA: Borderline aneurysm of the ascending thoracic aorta, measuring up to 4.[address]. Type A aortic dissection with dissection flap origin extending from the aortic root all the way to the aortoiliac confluence, with extension of dissection flap into the origin of the left common il iac artery. Abrupt nonopacification of the origin of the right common iliac artery at the confluence, with reopacification of the right common iliac artery just proximal to the right external and gallery intern al iliac bifurcation. Though it is somewhat difficult to be certain which is the false lumen within t he thoracic and abdominal aorta due to motion artifact, the false lumen appears to dominate the dista l descending thoracic and abdominal aorta, with only a small sliver of true lumen visualized at the c eliac axis takeoff and near complete collapse of the true lumen between the celiac axis takeoff and a ortoiliac confluence. The false lumen appears to provide vascularization to the left renal and inferi or mesenteric arteries, while the true lumen appears to opacify the supraaortic vasculature, the florian ac axis, SMA, and right renal arteries. No appreciated aortic intramural hematoma or thrombus. PULMONARY ARTERIES: Unremarkable as visualized. No pulmonary embolism is identified. GREAT VESSELS OF AORTIC ARCH: No acute findings. No dissection. No arterial occlusion or signif icant stenosis. CELIAC TRUNK AND MESENTERIC ARTERIES: See above. RENAL ARTERIES: See above. ILIAC ARTERIES: See above. CHEST: LUNGS: Unremarkable. No mass. No consolidation. PLEURAL SPACE: Lungs are well-aerated and clear bilaterally. No pleural effusion or pneumothorax. HEART: See above. MEDIASTINUM: Small hiatal hernia. ABDOMEN: LIVER: Multiple too small to characterize hypoattenuating foci within the right hepatic lobe and le ft kidney, statistically most likely to reflect simple cysts. No imaging follow-up recommended. GALLBLADDER AND BILE DUCTS: Unremarkable. No calcified stones. No ductal dilation. PANCREAS: Unremarkable. No ductal dilation. No mass. SPLEEN: Unremarkable. No splenomegaly. ADRENALS: Unremarkable. No mass. KIDNEYS AND URETERS: See above. STOMACH AND BOWEL: Colonic diverticulosis. Fecalization of the contents of the distal ileum, suggesting decreased bowel motility. No fin dings to suggest bowel obstruction. No mucosal thickening. PELVIS: APPENDIX: No findings to suggest acute appendicitis. BLADDER: Unremarkable. No mass. REPRODUCTIVE: Unremarkable as visualized. CHEST, ABDOMEN and PELVIS: INTRAPERITONEAL SPACE: Unremarkable. No significant fluid collection. No free air. BONES/JOINTS: No acute fracture. No dislocation. Multilevel spondylosis with mild grade 1 anterol isthesis of L5 on S1 and bilateral L5 pars defects SOFT TISSUES: Unremarkable. LYMPH NODES: Unremarkable. No enlarged lymph nodes. IMPRESSION: 1. 4.9 cm ectasia of the ascending thoracic aorta with Type A aortic dissection extendin g from the aortic root through to the aortoiliac confluence and proximal left common iliac artery. Th e false lumen compresses the true lumen in the descending thoracic and abdominal aorta and completely or almost completely collapses the true aortic lumen between the levels of the celiac axis takeoff t o the aortoiliac bifurcation. 2. There is abrupt nonopacification of the right common iliac origin, with reopacification of the rig ht common iliac artery just proximal to the external/internal iliac artery bifurcation. 3. The false lumen appears to provide vascularization to the left renal and inferior mesenteric art eries, while the true lumen appears to opacify the supraaortic vasculature, the celiac axis, SMA, and right renal arteries. Dr. Pritchett discussed these critical findings with Dr. Friedman via telephone at approximately 12:22 hour s PLANING MACHINE OPERATOR on 08/05/2022. Electronically signed by: Sim Pritchett MD 08/05/2022 12:47 AM CDT Due to temporary technical issues with the PACS/Fluency reporting system, reports are being signed by the in house radiologists without review as a courtesy to insure prompt reporting. The interpreting radiologist is fully responsible for the content of the report.
--- NOTE | 2022-08-06 14:20 | RAD REPORT ---
EXAM DESCRIPTION: RAD - Chest Single View - 08/04/2022 11:50 pm CLINICAL HISTORY: The patient is 77 years old and is Male; CHEST PAIN TECHNIQUE: Frontal view of the chest. COMPARISON: No relevant prior studies available. FINDINGS: Lungs: Hazy opacification of the mid to lower left lung which may be due to overlying so ft tissue, artifact, or airspace disease. Mildly prominent interstitial markings. Pleural space: Unremarkable. No pneumothorax. Heart: Unremarkable. Mediastinum: Unremarkable. Bones/joints: Partially visualized left shoulder arthroplasty. Vasculature: Prominent ascending aorta. IMPRESSION: 1. Hazy opacification of the mid to lower left lung which may be due to overlying soft tissue, artifact, or airspace disease. 2. Mildly prominent interstitial markings. 3. Prominent ascending aorta. Correlate with CT chest for further evaluation if clinically indica noel. Electronically signed by: Kermit George MD 08/05/2022 12:14 AM CDT Due to temporary technical issues with the PACS/Fluency reporting system, reports are being signed by the in house radiologists without review as a courtesy to insure prompt reporting. The interpreting radiologist is fully responsible for the content of the report.
== END 2022-08-05 01:11 | disposition short-term general hospital (02) ==
LOC: ER 23:11
DX: I71.00 Dissection of unspecified site of aorta (principal); I74.5 Embolism and thrombosis of iliac artery; G83.11 Monoplegia of lower limb affecting right dominant side; R20.0 Anesthesia of skin; Z20.822 Contact with and (suspected) exposure to COVID-19; E78.00 Pure hypercholesterolemia, unspecified; Z79.82 Long term (current) use of aspirin
CPT/HCPCS: 96365; 93005; 85025; 80048; 36415; 83735; 85610; 82947; 80076; 85730; 84484; 71275; 74175; 70450; 71045; 99285; 87811; Q9967